=== PATIENT | male | born 1935 ===

== ENCOUNTER 2017-11-21 09:03 | Inpatient (IN) | payer MEDICARE ==
[2017-11-21] MEDS ORDERED: Sodium Chloride 0.9% 1,000 ML IV ONE (09:27)
--- NOTE | 2017-11-21 09:27 | C.PDOC ---
History Of Present Illness 82-year-old male, REFERRED DR LANIER FOR ADMISSION FOR INGUINAL SURGERY REPAIR. PS L SIDED X 1 YR, INCREASING SIZE. OCC NAUSEA. NO OTHER ASSOC SX. NPO SINCE 0700 EXAM NAD ABD SOFT NT ND NO R/G +L INGUINAL HERNIA REMAINDER NEG MDM PER REFERRAL RX BY DR LANIER, ADMIT TO HIS SERVICES CONSULT STEVE LUCIANO AND CHAVEZ, PREOP TESTING. Time Seen by Provider: 11/21/17 09:27 Chief Complaint (Nursing): Medical Clearance History Per: Patient History/Exam Limitations: no limitations Past Medical History Reviewed: Historical Data, Nursing Documentation, Vital Signs Vital Signs: Last Vital Signs Temp 97.9 F 11/21/17 09:07 Pulse 83 11/21/17 10:43 Resp 18 11/21/17 10:43 BP 131/54 L 11/21/17 10:43 Pulse Ox 99 11/21/17 10:43 - Medical History PMH: COPD, HTN, Chronic Kidney Disease Family History: States: No Known Family Hx - Social History Hx Alcohol Use: No Hx Substance Use: No - Immunization History Hx Tetanus Toxoid Vaccination: No Hx Influenza Vaccination: Yes Hx Pneumococcal Vaccination: Yes Review Of Systems Constitutional: Negative for: Fever, Chills, Malaise Cardiovascular: Negative for: Chest Pain Respiratory: Negative for: Shortness of Breath Gastrointestinal: Positive for: Nausea, Other (HERNIA). Negative for: Vomiting Musculoskeletal: Negative for: Back Pain Skin: Negative for: Rash Neurological: Negative for: Weakness Physical Exam - Physical Exam Appears: Non-toxic, No Acute Distress Skin: Normal Color, Warm, Dry, No Rash Nose: Normal Oral Mucosa: Moist Lips: Normal Appearing Neck: Normal ROM Chest: Symmetrical Cardiovascular: Rhythm Regular, No Murmur Respiratory: Normal Breath Sounds, No Accessory Muscle Use Gastrointestinal/Abdominal: Soft, No Tenderness, No Distention, No Guarding, No Rebound, Other (+L INGUINAL HERNIA) Extremity: Normal ROM, No Deformity, No Swelling Neurological/Psych: Oriented x3, Normal Speech ED Course And Treatment - Laboratory Results Result Diagrams: 11/21/17 09:52 11/21/17 10:19 ECG: Interpreted By Wy ECG Rhythm: Sinus Rhythm ECG Interpretation: Normal Rate From EC O2 Sat by Pulse Oximetry: 98 Pulse Ox Interpretation: Normal Medical Decision Making Medical Decision Making: PER REFERRAL RX BY DR LANIER, ADMIT TO HIS SERVICES CONSULT STEVE LUCIANO AND CHAVEZ, PREOP TESTING. Disposition Counseled Patient/Family Regarding: Studies Performed, Diagnosis, Need For Followup - Disposition Disposition: HOSPITALIZED Disposition Time: 09:46 Condition: STABLE - POA Present On Arrival: None - Clinical Impression Clinical Impression: Inguinal hernia Decision To Admit - Pt Status Changed To: Hospital Disposition Of: Inpatient - Admit Certification Admit to Inpatient:: After my assessment, the patient will require hospitalization for at least two midnights. This is because of the severity of symptoms shown, intensity of services needed, and/or the medical risk in this patient being treated as an outpatient. - InPatient: Physician Admission Certification: I certify that this patient requires 2 or more midnights of care for the following reason:: SEE NOTE - . Bed Request Type: Regular Admitting Physician: Long Lanier Patient Diagnosis: Inguinal hernia
[2017-11-21] MEDS ORDERED: Sodium Chloride 0.9% 1,000 ML ONE (09:57)
[2017-11-21 10:03] LABS: BASO % 0.5 % (0.0-2.0); EOS # 0.2 K/uL (0.0-0.7); EOS % 2.4 % (0.0-4.0); HEMOGLOBIN 8.7 g/dL (12.0-18.0); LYMPH # 0.5 K/uL (1.0-4.3); LYMPH % 6.9 % (20.0-40.0); MEAN CELL VOLUME 94.6 fL (80.0-94.0); MEAN CORPUSCULAR HEMOGLOBIN 31.2 pg (27.0-31.0); MEAN PLATELET VOLUME 7.4 fL (7.2-11.7); MONO # 0.5 K/uL (0.0-0.8); MONO % 6.3 % (0.0-10.0); NEUT # 6.2 K/uL (1.8-7.0); NEUT % 83.9 % (50.0-75.0); PLATELET COUNT 287 K/uL (130-400); RBC 2.79 Mil/uL (4.40-5.90); RED CELL DISTRIBUTION WIDTH 17.9 % (11.5-14.5); WHITE BLOOD COUNT 7.4 K/uL (4.8-10.8)
[2017-11-21 10:13] LABS: PROTHROMBIN TIME 11.9 SECONDS (9.7-12.2)
[2017-11-21 10:20] LABS: SQUAMOUS EPITHIAL < 1 /hpf (0-5); URINE BILIRUBIN NEGATIVE (NEGATIVE); URINE BLOOD NEGATIVE (NEGATIVE); URINE CLARITY Clear (Clear); URINE COLOR Straw (YELLOW); URINE GLUCOSE (UA) NORMAL (Normal); URINE LEUKOCYTE ESTERASE NEG Leu/uL (Negative); URINE PROTEIN 2+ mg/dL (NEGATIVE); URINE UROBILINOGEN NORMAL mg/dL (0.2-1.0)
[2017-11-21 10:23] LABS: EOSINOPHIL 2 % (0-4); LYMPHOCYTE 6 % (20-40); MONOCYTE 5 % (0-10); NEUTROPHIL 87 % (50-75); TOTAL CELLS COUNTED 100
[2017-11-21 10:24] LABS: ANISOCYTOSIS SLIGHT; PLATELET ESTIMATE NORMAL (NORMAL)
[2017-11-21 10:26] LABS: HYPOCHROMIC SLIGHT
[2017-11-21 10:36] LABS: ALB/GLOB RATIO 0.8 (1.0-2.1); ALBUMIN 3.2 g/dL (3.5-5.0); CALCIUM 8.2 mg/dl (8.6-10.4)
[2017-11-21] MEDS ORDERED: Albuterol-Ipratrop 3 mg / 0.5 (3 ml) UD IH PRN (13:02)
--- NOTE | 2017-11-21 13:45 | CT ---
CT chest without IV contrast Indication: Rule out ILD Technique: Contiguous axial images were obtained through the chest without intravenous contrast enhancement. Sagittal and coronal reconstructions were generated and reviewed. This CT exam was performed using 1 or more of the following dose reduction techniques: Automated exposure control, adjustment of the MAA and/or kV according to patient size, and/or use of iterative reconstruction technique. Radiation dose (DLP): 219.11 MGy-cm. Comparison: Chest x-ray performed 11/21/17 Findings: The unenhanced mediastinal and hilar vascular structures appear grossly unremarkable. Dense atherosclerotic calcifications of the aorta. Dense coronary artery calcifications. Heart size appears top normal. Trace pericardial effusion. Prominent mediastinal adenopathy. Please note lack of IV contrast limits evaluation for adenopathy, in particular hilar adenopathy. Reticular nodular opacities bilaterally and interstitial prominence. Honeycombing was evident within the lingula and right middle lobe. Patchy bilateral lower lobe infiltrates. No pleural effusion. No pneumothorax. Limited visualization of the noncontrast upper abdomen: Nonobstructing right renal calculus. 6 mm right posterior hepatic lobe calcification, likely granuloma. Osseous demineralization. Degenerative changes of the spine. L1 vertebral body compression fracture deformity, age indeterminate. Impression: Prominent mediastinal adenopathy. Please note lack of IV contrast limits evaluation for adenopathy, in particular hilar adenopathy. Reticular nodular opacities bilaterally and interstitial prominence. Honeycombing was evident within the lingula and right middle lobe. Patchy bilateral lower lobe infiltrates. Superimposed infection on interstitial lung disease is not excluded; correlate clinically. Dense coronary artery calcifications. Atherosclerotic calcifications of the aorta. Trace pericardial effusion. Limited visualization of the noncontrast upper abdomen: Nonobstructing right renal calculus. 6 mm right posterior hepatic lobe calcification, likely granuloma. L1 vertebral body compression fracture deformity, age indeterminate.
--- NOTE | 2017-11-21 14:26 | RAD ---
HISTORY: Pre Op COMPARISON: CT chest without contrast performed 11/21/17 TECHNIQUE: Chest PA and lateral FINDINGS: LUNGS: Interstitial prominence appears chronic. Evidence of honeycombing and bibasilar atelectasis. Mild patchy bibasilar infiltrates/atelectasis. PLEURA: No significant pleural effusion identified. No definite pneumothorax . CARDIOVASCULAR: Heart size appears within normal limits. Ectatic aorta. Dense atherosclerotic calcifications of the aorta. OSSEOUS STRUCTURES: Degenerative changes. VISUALIZED UPPER ABDOMEN: Unremarkable. OTHER FINDINGS: None. IMPRESSION: Interstitial prominence appears chronic. Evidence of honeycombing. Mild patchy bibasilar infiltrates/atelectasis.
[2017-11-21 14:50] LABS: ARTERIAL BLOOD GAS HCO3 19.6 mmol/L (21-28); ARTERIAL BLOOD GAS HEMOGLOBIN 7.6 g/dL (11.7-17.4); ARTERIAL BLOOD GAS O2 SAT 98.4 % (95-98); ARTERIAL BLOOD GAS PCO2 35 mm/Hg (35-45); ARTERIAL BLOOD GAS PH 7.33 (7.35-7.45); ARTERIAL BLOOD GAS PO2 117 mm/Hg (80-100); ARTERIAL BLOOD GAS TCO2 19.6 mmol/L (22-28)
--- NOTE | 2017-11-21 15:47 | CP.PCM.CON ---
History of Present Illness - History of Present Illness History of Present Illness: Reason for consultation: pulmonary clearance/ patient with history of COPD Mr. Moreno is an 82 year old male with medical history of COPD, HTN, CKD who presented to the ED on 11/[address] Ocampo for admission for left inguinal hernia repair. He states the hernia has been present for 1.5 years. He reports mild pain at the site only when he is walking. Denies dyspnea on exertion, history of fibrosis. Reports occasional cough, especially at night. Of note, he states he worked in [employer] for 29 years. He is also a former smoker, started about age 18, quit about age [age]. PMHx: COPD, HTN, CKD, DM PSHx: right inguinal hernia repair NKDA Social Hx: former smoker, worked in [employer] Review of Systems - Review of Systems All systems: reviewed and no additional remarkable complaints except ( complaining of cough) Past Patient History - Past Medical History & Family History Past Medical History?: Yes - Past Social History Smoking Status: Former Smoker - CARDIAC Hx Hypertension: Yes - PULMONARY Hx Chronic Obstructive Pulmonary Disease (COPD): Yes - HEENT Other/Comment: wears glasses - RENAL Hx Chronic Kidney Disease: Yes - ENDOCRINE/METABOLIC Hx Endocrine Disorders: Yes Hx Diabetes Mellitus Type 2: Yes - HEMATOLOGICAL/ONCOLOGICAL Hx Blood Transfusions: Yes - MUSCULOSKELETAL/RHEUMATOLOGICAL Hx Arthritis: Yes Hx Falls: Yes - GASTROINTESTINAL Hx Gastrointestinal Disorders: Yes Other/Comment: HERNIA - PSYCHIATRIC Hx Substance Use: No - SURGICAL HISTORY Hx Surgeries: Yes Hx Herniorrhaphy: Yes (RIGHT INGUINAL) Meds Allergies/Adverse Reactions: Allergies Allergy/AdvReac Type Severity Reaction Status Date / Time No Known Allergies Allergy Verified 11/21/17 09:11 - Medications Medications: Current Medications Albuterol/Ipratropium (Duoneb 3 Mg/0.5 Mg (3 Ml) Ud) 3 ml IH Q4 PRN PRN Reason: Shortness of Breath Amlodipine Besylate (Norvasc) 5 mg PO DAILY [facility] Folic Acid (Folic Acid) 1 mg PO DAILY ZOFIA Sodium Chloride (Sodium Chloride 0.9%) 1,000 mls @ 100 mls/hr IV .Q10H ONE Stop: 11/21/17 19:26 Last Admin: 11/21/17 09:57 Dose: 100 mls/hr Lisinopril (Zestril) 20 mg PO DAILY [facility] Pantoprazole Sodium (Protonix Ec Tab) 40 mg PO DAILY ZOFIA Physical Exam - Head Exam Head Exam: ATRAUMATIC, NORMOCEPHALIC - ENT Exam ENT Exam: Mucous Membranes Moist - Neck Exam Neck exam: Positive for: Normal Inspection - Respiratory Exam Respiratory Exam: Rales - Cardiovascular Exam Cardiovascular Exam: REGULAR RHYTHM - GI/Abdominal Exam GI & Abdominal Exam: Normal Bowel Sounds, Soft - Extremities Exam Extremities exam: Positive for: normal inspection - Neurological Exam Neurological exam: Alert, Oriented x3 Results - Vital Signs Recent Vital Signs: Last Vital Signs Temp 97.9 F 11/21/17 09:07 Pulse 83 11/21/17 10:43 Resp 18 11/21/17 10:43 BP 131/54 L 11/21/17 10:43 Pulse Ox 98 11/21/17 13:29 - Labs Result Diagrams: 11/21/17 09:52 11/21/17 10:19 Labs: Laboratory Results - last 24 hr 11/21/17 11/21/17 11/21/17 09:52 09:52 09:52 WBC 7.4 RBC 2.79 L Hgb 8.7 L Hct 26.4 L MCV 94.6 H MCH 31.2 H MCHC 33.0 RDW 17.9 H Plt Count 287 MPV 7.4 Neut % (Auto) 83.9 H Lymph % (Auto) 6.9 L Prentiss % (Auto) 6.3 Eos % (Auto) 2.4 Baso % (Auto) 0.5 Neut # (Auto) 6.2 Lymph # (Auto) 0.5 L Prentiss # (Auto) 0.5 Eos # (Auto) 0.2 Baso # (Auto) 0.0 Neutrophils % (Manual) 87 H Lymphocytes % (Manual) 6 L Monocytes % (Manual) 5 Eosinophils % (Manual) 2 Platelet Estimate Normal Hypochromasia (manual) Slight Anisocytosis (manual) Slight PT 11.9 INR 1.0 APTT 32 Puncture Site pCO2 pO2 HCO3 ABG pH ABG Total CO2 ABG O2 Saturation ABG Base Excess ABG Hemoglobin ABG Carboxyhemoglobin POC ABG HHb (Measured) ABG Methemoglobin Nuno Test A-a O2 Difference Respiratory Index Hgb O2 Saturation FiO2 Sodium Potassium Chloride Carbon Dioxide Anion Gap BUN Creatinine Est GFR ( Amer) Est GFR (Non-Af Amer) POC Glucose (mg/dL) Random Glucose Calcium Total Bilirubin AST ALT Alkaline Phosphatase Total Protein Albumin Globulin Albumin/Globulin Ratio Urine Color Urine Clarity Urine pH Ur Specific [place] Urine Protein Urine Glucose (UA) Urine Ketones Urine Blood Urine Nitrate Urine Bilirubin Urine Urobilinogen Ur Leukocyte Esterase Urine WBC (Auto) Urine RBC (Auto) Ur Squamous Epith Cells Blood Type O POSITIVE Antibody Screen Negative 11/21/17 11/21/17 11/21/17 10:06 10:19 11:24 WBC RBC Hgb Hct MCV MCH MCHC RDW Plt Count MPV Neut % (Auto) Lymph % (Auto) P[place] % (Auto) Eos % (Auto) Baso % (Auto) Neut # (Auto) Lymph # (Auto) Prentiss # (Auto) Eos # (Auto) Baso # (Auto) Neutrophils % (Manual) Lymphocytes % (Manual) Monocytes % (Manual) Eosinophils % (Manual) Platelet Estimate Hypochromasia (manual) Anisocytosis (manual) PT INR APTT Puncture Site pCO2 pO2 HCO3 ABG pH ABG Total CO2 ABG O2 Saturation ABG Base Excess ABG Hemoglobin ABG Carboxyhemoglobin POC ABG HHb (Measured) ABG Methemoglobin Nuno Test A-a O2 Difference Respiratory Index Hgb O2 Saturation FiO2 Sodium 142 Potassium 4.5 Chloride 112 H Carbon Dioxide 18 L Anion Gap 17 BUN 54 H Creatinine 2.2 H Est GFR ( Amer) 35 Est GFR (Non-Af Amer) 29 POC Glucose (mg/dL) 151 H Random Glucose 131 H Calcium 8.2 L Total Bilirubin 0.3 AST 17 ALT 20 L Alkaline Phosphatase 58 Total Protein 7.1 Albumin 3.2 L Globulin 3.9 Albumin/Globulin Ratio 0.8 L Urine Color Straw Urine Clarity Clear Urine pH 5.0 Ur Specific [place] 1.012 Urine Protein 2+ H Urine Glucose (UA) Normal Urine Ketones Negative Urine Blood Negative Urine Nitrate Negative Urine Bilirubin Negative Urine Urobilinogen Normal Ur Leukocyte Esterase Neg Urine WBC (Auto) 1 Urine RBC (Auto) 1 Ur Squamous Epith Cells < 1 Blood Type Antibody Screen 11/21/17 14:45 WBC RBC Hgb Hct MCV MCH MCHC RDW Plt Count MPV Neut % (Auto) Lymph % (Auto) P[place] % (Auto) Eos % (Auto) Baso % (Auto) Neut # (Auto) Lymph # (Auto) Prentiss # (Auto) Eos # (Auto) Baso # (Auto) Neutrophils % (Manual) Lymphocytes % (Manual) Monocytes % (Manual) Eosinophils % (Manual) Platelet Estimate Hypochromasia (manual) Anisocytosis (manual) PT INR APTT Puncture Site Rb pCO2 35 pO2 117 H HCO3 19.6 L ABG pH 7.33 L ABG Total CO2 19.6 L ABG O2 Saturation 98.4 H ABG Base Excess -6.8 L ABG Hemoglobin 7.6 L ABG Carboxyhemoglobin 0.9 POC ABG HHb (Measured) 1.6 ABG Methemoglobin 1.2 Nuno Test Na A-a O2 Difference -11.0 Respiratory Index -0.1 Hgb O2 Saturation 96.3 FiO2 21.0 Sodium Potassium Chloride Carbon Dioxide Anion Gap BUN Creatinine Est GFR ( Amer) Est GFR (Non-Af Amer) POC Glucose (mg/dL) Random Glucose Calcium Total Bilirubin AST ALT Alkaline Phosphatase Total Protein Albumin Globulin Albumin/Globulin Ratio Urine Color Urine Clarity Urine pH Ur Specific [place] Urine Protein Urine Glucose (UA) Urine Ketones Urine Blood Urine Nitrate Urine Bilirubin Urine Urobilinogen Ur Leukocyte Esterase Urine WBC (Auto) Urine RBC (Auto) Ur Squamous Epith Cells Blood Type Antibody Screen Assessment & Plan (1) ILD (interstitial lung disease) Status: Acute (2) COPD (chronic obstructive pulmonary disease) Status: Acute Comment: CAT scan of the chest consistent with instertitial lung disease with honeycombing. continue nebulizer treatment for now. Rule out sarcoidosis. Inhaled steroid. ABG consistent with metabolic acidosis secondary to renal insufficiency. Consider nephrology evaluation. Stop lisinopril (3) Renal insufficiency Status: Acute (4) Inguinal hernia Status: Acute
--- NOTE | 2017-11-21 18:43 | CP.PCM.CON ---
History of Present Illness - History of Present Illness History of Present Illness: I was asked to see patient by Dr Ocampo. Patient is a 82 year old male with PMH HTN hypercholesterolemia who presents with groin pain. The patient has a hernia and needs surgery. Echocardiogram was performed, which I reviewed. Review of Systems - Constitutional Constitutional: absent: As Per HPI, Anorexia, Chills, Daytime Sleepiness, Excessive Sweating, Fatigue, Fever, Frequent Falls, Headache, Increased Appetite , Lethargy, Malaise, Night Sweats, Snoring, Sleep Apnea, Weight Gain, Weight Loss, Weakness, Other - EENT Eyes: absent: As Per HPI, Blind Spots, Blurred Vision, Change in Vision, Decreased Night Vision, Diplopia, Discharge, Dry Eye, Exophthalmos, Floaters, Irritation, Itchy Eyes, Loss of Peripheral Vision, Pain, Photophobia, Requires Corrective Lenses, Sees Flashes, Spots in Vision, Tunnel Vision, Other Visual Disturbances, Loss of Vision, Other Ears: absent: As Per HPI, Decreased Hearing, Ear Discharge, Ear Pain, Tinnitus, Abnormal Hearing, Disequilibrium, Dizziness, Other Nose/Mouth/Throat: absent: As Per HPI, Epistaxis, Nasal Congestion, Nasal Discharge, Nasal Obstruction, Nasal Trauma, Nose Pain, Post Nasal Drip, Sinus Pain, Sinus Pressure, Bleeding Gums, Change in Voice, Dental Pain, Dry Mouth, Dysphagia, Halitosis, Hoarsness, Lip Swelling, Mouth Lesions, Mouth Pain, Odynophagia, Sore Throat, Throat Swelling, Tongue Swelling, Facial Pain, Neck Pain, Neck Mass, Other - Cardiovascular Cardiovascular: absent: As Per HPI, Acrocyanosis, Chest Pain, Chest Pain at Rest , Chest Pain with Activity, Claudication, Diaphoresis, Dyspnea, Dyspnea on Exertion, Edema, Irregular Heart Rhythm, Pain Radiating to Arm/Neck/Jaw, Leg Edema, Leg Ulcers, Lightheadedness, Orthopnea, Palpitations, Paroxysmal Nocturnal Dyspnea, Pedal Edema, Radiating Pain, Rapid Heart Rate, Slow Heart Rate, Syncope, Other - Respiratory Respiratory: absent: As Per HPI, Cough, Dyspnea, Hemoptysis, Dyspnea on Exertion , Wheezing, Snoring, Stridor, Pain on Inspiration, Chest Congestion, Excessive Mucous Production, Change in Mucous Color, Pain with Coughing, Other - Gastrointestinal Gastrointestinal: absent: As Per HPI, Abdominal Pain, Belching, Bloating, Change in Bowel Habits, Change in Stool Character, Coffee Ground Emesis, Constipation, Cramping, Diarrhea, Dyspepsia, Dysphagia, Early Satiety, Excessive Flatus, Fecal Incontinence, Heartburn, Hematemesis, Hematochezia, Loose Stools, Melena, Nausea, Odynophagia, Temesmus, Vomiting, Other - Genitourinary Genitourinary: absent: As Per HPI, Change in Urinary Stream, Difficulty Urinating, Dysuria, Flank Pain, Hematuria, Pyuria, Nocturia, Urinary Incontinence, Urinary Frequency, Urinary Hesitance, Urinary Urgency, Voiding Freq/Small Amts, Freq UTI, Hx Renal/Bladder Calculi, Hx /Renal Surgery, Bladder Distension, Other - Musculoskeletal Musculoskeletal: absent: As Per HPI, Abnormal Gait, Arthralgias, Atrophy, Back Pain, Deformity, Joint Swelling, Limited Range of Motion, Loss of Height, Muscle Cramps, Muscle Weakness, Myalgias, Neck Pain, Numbness, Radiating Pain into Limb, Stiffness, Tingling, Other - Integumentary Integumentary: absent: As Per HPI, Acne, Alopecia, Bleeding Lesions, Change in Hair, Change in Nails, Change in Pigmentation, Changing Lesions, Dry Skin, Erythema, Furuncle, Hirsutism, Lesions, New Lesions, Non-Healing Lesions, Photosensitivity, Pruritus, Rash, Skin Pain, Skin Ulcer, Sores, Striae, Swelling , Unusual Bruising, Wounds, Jaundice, Other - Neurological Neurological: absent: As Per HPI, Abnormal Gait, Abnormal Hearing, Abnormal Movements, Abnormal Speech, Behavioral Changes, Burning Sensations, Confusion, Convulsions, Disequilibrium, Dizziness, Numbness, Focal Weakness, Frequent Falls , Headaches, Lack of Coordination, Loss of Vision, Memory Loss, Paresthesias, Radicular Pain, Restless Legs, Sensory Deficit, Syncope, Tingling, Tremor, Vertigo, Weakness, Other Visual Disturbances, Other - Psychiatric Psychiatric: absent: As Per HPI, Abnormal Sleep Pattern, Anhedonia, Anxiety, Auditory Hallucinations, Behavioral Changes, Change in Appetite, Change in Libido, Confusion, Depression, Difficulty Concentrating, Hallucinations, Homicidal Ideation, Hopelessness, Irritability, Memory Loss, Mood Swings, Panic Attacks, Paranoia, Suicidal Ideation, Visual Hallucinations, Tactile Hallucinations, Other - Endocrine Endocrine: absent: As Per HPI, Change in Body Appearance, Change in Libido, Cold Intolorance, Deepening of Voice, Excessive Sweating, Fatigue, Flushing, Heat Intolorance, Increase in Ring/Shoe/Hat Size, Palpitations, Polydipsia, Polyphagia, Polyuria, Other - Hematologic/Lymphatic Hematologic: absent: As Per HPI, Easy Bleeding, Easy Bruising, Lymphadenopathy, Other Past Patient History - Past Medical History & Family History Past Medical History?: Yes - Past Social History Smoking Status: Former Smoker - CARDIAC Hx Hypertension: Yes - PULMONARY Hx Chronic Obstructive Pulmonary Disease (COPD): Yes - HEENT Other/Comment: wears glasses - RENAL Hx Chronic Kidney Disease: Yes - ENDOCRINE/METABOLIC Hx Endocrine Disorders: Yes Hx Diabetes Mellitus Type 2: Yes - HEMATOLOGICAL/ONCOLOGICAL Hx Blood Transfusions: Yes - MUSCULOSKELETAL/RHEUMATOLOGICAL Hx Arthritis: Yes Hx Falls: Yes - GASTROINTESTINAL Hx Gastrointestinal Disorders: Yes Other/Comment: HERNIA - PSYCHIATRIC Hx Substance Use: No - SURGICAL HISTORY Hx Surgeries: Yes Hx Herniorrhaphy: Yes (RIGHT INGUINAL) Meds Allergies/Adverse Reactions: Allergies Allergy/AdvReac Type Severity Reaction Status Date / Time No Known Allergies Allergy Verified 11/21/17 09:11 - Medications Medications: Current Medications Albuterol/Ipratropium (Duoneb 3 Mg/0.5 Mg (3 Ml) Ud) 3 ml IH RQ6 ZOFIA Amlodipine Besylate (Norvasc) 5 mg PO DAILY [facility] Folic Acid (Folic Acid) 1 mg PO DAILY [facility] Sodium Chloride (Sodium Chloride 0.9%) 1,000 mls @ 100 mls/hr IV .Q10H ONE Stop: 11/21/17 19:26 Last Admin: 11/21/17 09:57 Dose: 100 mls/hr Pantoprazole Sodium (Protonix Ec Tab) 40 mg PO DAILY [facility] Physical Exam - Constitutional Appears: Non-toxic - Head Exam Head Exam: NORMAL INSPECTION - Eye Exam Eye Exam: Normal appearance - ENT Exam ENT Exam: Mucous Membranes Moist - Neck Exam Neck exam: Positive for: Full Rom - Respiratory Exam Respiratory Exam: NORMAL BREATHING PATTERN - Cardiovascular Exam Cardiovascular Exam: REGULAR RHYTHM - GI/Abdominal Exam GI & Abdominal Exam: Normal Bowel Sounds - Rectal Exam Rectal Exam: Deferred - Extremities Exam Extremities exam: Negative for: pedal edema - Back Exam Back exam: NORMAL INSPECTION - Neurological Exam Neurological exam: Alert, Oriented x3 - Psychiatric Exam Psychiatric exam: Normal Affect - Skin Skin Exam: Normal Color Results - Vital Signs Recent Vital Signs: Last Vital Signs Temp 98 F 11/21/17 16:00 Pulse 84 11/21/17 16:00 Resp 20 11/21/17 16:00 BP 118/54 L 11/21/17 16:00 Pulse Ox 95 11/21/17 16:00 - Labs Result Diagrams: 11/21/17 09:52 11/21/17 10:19 Labs: Laboratory Results - last 24 hr 11/21/17 11/21/17 11/21/17 09:52 09:52 09:52 WBC 7.4 RBC 2.79 L Hgb 8.7 L Hct 26.4 L MCV 94.6 H MCH 31.2 H MCHC 33.0 RDW 17.9 H Plt Count 287 MPV 7.4 Neut % (Auto) 83.9 H Lymph % (Auto) 6.9 L [place] % (Auto) 6.3 Eos % (Auto) 2.4 Baso % (Auto) 0.5 Neut # (Auto) 6.2 Lymph # (Auto) 0.5 L [place] # (Auto) 0.5 Eos # (Auto) 0.2 Baso # (Auto) 0.0 Neutrophils % (Manual) 87 H Lymphocytes % (Manual) 6 L Monocytes % (Manual) 5 Eosinophils % (Manual) 2 Platelet Estimate Normal Hypochromasia (manual) Slight Anisocytosis (manual) Slight ESR PT 11.9 INR 1.0 APTT 32 Puncture Site pCO2 pO2 HCO3 ABG pH ABG Total CO2 ABG O2 Saturation ABG Base Excess ABG Hemoglobin ABG Carboxyhemoglobin POC ABG HHb (Measured) ABG Methemoglobin Nuno Test A-a O2 Difference Respiratory Index Hgb O2 Saturation FiO2 Sodium Potassium Chloride Carbon Dioxide Anion Gap BUN Creatinine Est GFR ( Amer) Est GFR (Non-Af Amer) POC Glucose (mg/dL) Random Glucose Calcium Total Bilirubin AST ALT Alkaline Phosphatase Total Protein Albumin Globulin Albumin/Globulin Ratio Urine Color Urine Clarity Urine pH Ur Specific [place] Urine Protein Urine Glucose (UA) Urine Ketones Urine Blood Urine Nitrate Urine Bilirubin Urine Urobilinogen Ur Leukocyte Esterase Urine WBC (Auto) Urine RBC (Auto) Ur Squamous Epith Cells Blood Type O POSITIVE Antibody Screen Negative 11/21/17 11/21/17 11/21/17 10:06 10:19 11:24 WBC RBC Hgb Hct MCV MCH MCHC RDW Plt Count MPV Neut % (Auto) Lymph % (Auto) [place] % (Auto) Eos % (Auto) Baso % (Auto) Neut # (Auto) Lymph # (Auto) [place] # (Auto) Eos # (Auto) Baso # (Auto) Neutrophils % (Manual) Lymphocytes % (Manual) Monocytes % (Manual) Eosinophils % (Manual) Platelet Estimate Hypochromasia (manual) Anisocytosis (manual) ESR PT INR APTT Puncture Site pCO2 pO2 HCO3 ABG pH ABG Total CO2 ABG O2 Saturation ABG Base Excess ABG Hemoglobin ABG Carboxyhemoglobin POC ABG HHb (Measured) ABG Methemoglobin Nuno Test A-a O2 Difference Respiratory Index Hgb O2 Saturation FiO2 Sodium 142 Potassium 4.5 Chloride 112 H Carbon Dioxide 18 L Anion Gap 17 BUN 54 H Creatinine 2.2 H Est GFR ( Amer) 35 Est GFR (Non-Af Amer) 29 POC Glucose (mg/dL) 151 H Random Glucose 131 H Calcium 8.2 L Total Bilirubin 0.3 AST 17 ALT 20 L Alkaline Phosphatase 58 Total Protein 7.1 Albumin 3.2 L Globulin 3.9 Albumin/Globulin Ratio 0.8 L Urine Color Straw Urine Clarity Clear Urine pH 5.0 Ur Specific [place] 1.012 Urine Protein 2+ H Urine Glucose (UA) Normal Urine Ketones Negative Urine Blood Negative Urine Nitrate Negative Urine Bilirubin Negative Urine Urobilinogen Normal Ur Leukocyte Esterase Neg Urine WBC (Auto) 1 Urine RBC (Auto) 1 Ur Squamous Epith Cells < 1 Blood Type Antibody Screen 11/21/17 11/21/17 11/21/17 14:45 17:08 17:24 WBC RBC Hgb Hct MCV MCH MCHC RDW Plt Count MPV Neut % (Auto) Lymph % (Auto) [place] % (Auto) Eos % (Auto) Baso % (Auto) Neut # (Auto) Lymph # (Auto) [place] # (Auto) Eos # (Auto) Baso # (Auto) Neutrophils % (Manual) Lymphocytes % (Manual) Monocytes % (Manual) Eosinophils % (Manual) Platelet Estimate Hypochromasia (manual) Anisocytosis (manual) ESR 142 H PT INR APTT Puncture Site Rb pCO2 35 pO2 117 H HCO3 19.6 L ABG pH 7.33 L ABG Total CO2 19.6 L ABG O2 Saturation 98.4 H ABG Base Excess -6.8 L ABG Hemoglobin 7.6 L ABG Carboxyhemoglobin 0.9 POC ABG HHb (Measured) 1.6 ABG Methemoglobin 1.2 Nuno Test Na A-a O2 Difference -11.0 Respiratory Index -0.1 Hgb O2 Saturation 96.3 FiO2 21.0 Sodium Potassium Chloride Carbon Dioxide Anion Gap BUN Creatinine Est GFR ( Amer) Est GFR (Non-Af Amer) POC Glucose (mg/dL) 138 H Random Glucose Calcium Total Bilirubin AST ALT Alkaline Phosphatase Total Protein Albumin Globulin Albumin/Globulin Ratio Urine Color Urine Clarity Urine pH Ur Specific [place] Urine Protein Urine Glucose (UA) Urine Ketones Urine Blood Urine Nitrate Urine Bilirubin Urine Urobilinogen Ur Leukocyte Esterase Urine WBC (Auto) Urine RBC (Auto) Ur Squamous Epith Cells Blood Type Antibody Screen - EKG Data EKG Interpreted by: Myself Assessment & Plan (1) Cardiomyopathy Assessment and Plan: patient is euvolemic. He ahs a dilated cardiomyopathy. He has not had a previous history of cardiomyopathy. He is well compensated. I discussed the improtance of medical therapy and blood pressure control. He is at moderate risk for a low risk procedure. There is no cardiovascular contraindication. May need lifevest usp. Status: Acute (2) COPD (chronic obstructive pulmonary disease) Assessment and Plan: Dr Weems Status: Acute (3) Inguinal hernia Assessment and Plan: moderate cardiovascular risk for a low risk procedure. Status: Acute
[2017-11-21] MEDS: Albuterol-Ipratrop 3 mg / 0.5 (3 ml) UD IH SCH (20:29)
[2017-11-21 22:20] LABS: IRON 27 ug/dL (49-181)
[2017-11-21 22:32] LABS: % IRON SATURATION 12 (20-55); TOTAL IRON BINDING CAPACITY 221 ug/dL (250-450)
--- NOTE | 2017-11-21 22:34 | US ---
EXAM: US Retroperitoneal Limited, Renal CLINICAL HISTORY: 82 years old, male; Condition or disease; Other: Ckd; Additional info: Ckd for kidney size TECHNIQUE: Real-time ultrasound of the retroperitoneum (limited) with image documentation. COMPARISON: No relevant prior studies available. FINDINGS: Aorta: Atherosclerosis. No aneurysm. Right kidney: Increased in echogenicity. No mass. 0.6 cm calculus. No hydronephrosis. Left kidney: Increased in echogenicity. No mass. 0.3 cm calculus vs vascular calcification. Mild pelvocaliectasis. Bladder: Minimal distention, limiting evaluation. IMPRESSION: 1. Echogenic kidneys suggesting medical renal disease. 2. Mild pelvocaliectasis of LEFT kidney. 3. Incidental/non-acute findings are described above.
--- NOTE | 2017-11-21 22:44 | CP.PCM.HP ---
History of Present Illness - History of Present Illness History of Present Illness: CC: groin pain HPI: Mr. Moreno is an 82 year old male with medical history of COPD, HTN, CKD who presented to the ED on 11/[address] Ocampo for admission for left inguinal hernia repair. He states the hernia has been present for 1.5 years. He reports mild pain at the site only when he is walking. Denies dyspnea on exertion, history of fibrosis. Reports occasional cough, especially at night. Of note, he states he worked in [employer] for 29 years. He is also a former smoker, started about age 18, quit about age 40- 42. PMHx: COPD, HTN, CKD, DM PSHx: right inguinal hernia repair NKDA Social Hx: former smoker, worked in [employer] Past Patient History - Past Medical History & Family History Past Medical History?: Yes - Past Social History Smoking Status: Former Smoker - CARDIAC Hx Hypertension: Yes - PULMONARY Hx Chronic Obstructive Pulmonary Disease (COPD): Yes - HEENT Other/Comment: wears glasses - RENAL Hx Chronic Kidney Disease: Yes - ENDOCRINE/METABOLIC Hx Endocrine Disorders: Yes Hx Diabetes Mellitus Type 2: Yes - HEMATOLOGICAL/ONCOLOGICAL Hx Blood Transfusions: Yes - MUSCULOSKELETAL/RHEUMATOLOGICAL Hx Arthritis: Yes Hx Falls: Yes - GASTROINTESTINAL Hx Gastrointestinal Disorders: Yes Other/Comment: HERNIA - PSYCHIATRIC Hx Substance Use: No - SURGICAL HISTORY Hx Surgeries: Yes Hx Herniorrhaphy: Yes (RIGHT INGUINAL) Meds Allergies/Adverse Reactions: Allergies Allergy/AdvReac Type Severity Reaction Status Date / Time No Known Allergies Allergy Verified 11/21/17 09:11 Results - Vital Signs Recent Vital Signs: Last Vital Signs Temp 98 F 11/21/17 16:00 Pulse 84 11/21/17 16:00 Resp 20 11/21/17 16:00 BP 118/54 L 11/21/17 16:00 Pulse Ox 95 11/21/17 16:00 - Labs Result Diagrams: 11/21/17 09:52 11/21/17 10:19 Labs: Laboratory Results - last 24 hr 11/21/17 11/21/17 11/21/17 09:52 09:52 09:52 WBC 7.4 RBC 2.79 L Hgb 8.7 L Hct 26.4 L MCV 94.6 H MCH 31.2 H MCHC 33.0 RDW 17.9 H Plt Count 287 MPV 7.4 Neut % (Auto) 83.9 H Lymph % (Auto) 6.9 L [place] % (Auto) 6.3 Eos % (Auto) 2.4 Baso % (Auto) 0.5 Neut # (Auto) 6.2 Lymph # (Auto) 0.5 L [place] # (Auto) 0.5 Eos # (Auto) 0.2 Baso # (Auto) 0.0 Neutrophils % (Manual) 87 H Lymphocytes % (Manual) 6 L Monocytes % (Manual) 5 Eosinophils % (Manual) 2 Platelet Estimate Normal Hypochromasia (manual) Slight Anisocytosis (manual) Slight ESR PT 11.9 INR 1.0 APTT 32 Puncture Site pCO2 pO2 HCO3 ABG pH ABG Total CO2 ABG O2 Saturation ABG Base Excess ABG Hemoglobin ABG Carboxyhemoglobin POC ABG HHb (Measured) ABG Methemoglobin Nuno Test A-a O2 Difference Respiratory Index Hgb O2 Saturation FiO2 Sodium Potassium Chloride Carbon Dioxide Anion Gap BUN Creatinine Est GFR ( Amer) Est GFR (Non-Af Amer) POC Glucose (mg/dL) Random Glucose Calcium Phosphorus Iron TIBC % Saturation Total Bilirubin AST ALT Alkaline Phosphatase Total Protein Albumin Globulin Albumin/Globulin Ratio Urine Color Urine Clarity Urine pH Ur Specific [place] Urine Protein Urine Glucose (UA) Urine Ketones Urine Blood Urine Nitrate Urine Bilirubin Urine Urobilinogen Ur Leukocyte Esterase Urine WBC (Auto) Urine RBC (Auto) Ur Squamous Epith Cells Blood Type O POSITIVE Antibody Screen Negative 11/21/17 11/21/17 11/21/17 10:06 10:19 11:24 WBC RBC Hgb Hct MCV MCH MCHC RDW Plt Count MPV Neut % (Auto) Lymph % (Auto) [place] % (Auto) Eos % (Auto) Baso % (Auto) Neut # (Auto) Lymph # (Auto) [place] # (Auto) Eos # (Auto) Baso # (Auto) Neutrophils % (Manual) Lymphocytes % (Manual) Monocytes % (Manual) Eosinophils % (Manual) Platelet Estimate Hypochromasia (manual) Anisocytosis (manual) ESR PT INR APTT Puncture Site pCO2 pO2 HCO3 ABG pH ABG Total CO2 ABG O2 Saturation ABG Base Excess ABG Hemoglobin ABG Carboxyhemoglobin POC ABG HHb (Measured) ABG Methemoglobin Nuno Test A-a O2 Difference Respiratory Index Hgb O2 Saturation FiO2 Sodium 142 Potassium 4.5 Chloride 112 H Carbon Dioxide 18 L Anion Gap 17 BUN 54 H Creatinine 2.2 H Est GFR ( Amer) 35 Est GFR (Non-Af Amer) 29 POC Glucose (mg/dL) 151 H Random Glucose 131 H Calcium 8.2 L Phosphorus Iron TIBC % Saturation Total Bilirubin 0.3 AST 17 ALT 20 L Alkaline Phosphatase 58 Total Protein 7.1 Albumin 3.2 L Globulin 3.9 Albumin/Globulin Ratio 0.8 L Urine Color Straw Urine Clarity Clear Urine pH 5.0 Ur Specific [place] 1.012 Urine Protein 2+ H Urine Glucose (UA) Normal Urine Ketones Negative Urine Blood Negative Urine Nitrate Negative Urine Bilirubin Negative Urine Urobilinogen Normal Ur Leukocyte Esterase Neg Urine WBC (Auto) 1 Urine RBC (Auto) 1 Ur Squamous Epith Cells < 1 Blood Type Antibody Screen 11/21/17 11/21/17 11/21/17 14:45 17:08 17:24 WBC RBC Hgb Hct MCV MCH MCHC RDW Plt Count MPV Neut % (Auto) Lymph % (Auto) [place] % (Auto) Eos % (Auto) Baso % (Auto) Neut # (Auto) Lymph # (Auto) [place] # (Auto) Eos # (Auto) Baso # (Auto) Neutrophils % (Manual) Lymphocytes % (Manual) Monocytes % (Manual) Eosinophils % (Manual) Platelet Estimate Hypochromasia (manual) Anisocytosis (manual) ESR 142 H PT INR APTT Puncture Site Rb pCO2 35 pO2 117 H HCO3 19.6 L ABG pH 7.33 L ABG Total CO2 19.6 L ABG O2 Saturation 98.4 H ABG Base Excess -6.8 L ABG Hemoglobin 7.6 L ABG Carboxyhemoglobin 0.9 POC ABG HHb (Measured) 1.6 ABG Methemoglobin 1.2 Nuno Test Na A-a O2 Difference -11.0 Respiratory Index -0.1 Hgb O2 Saturation 96.3 FiO2 21.0 Sodium Potassium Chloride Carbon Dioxide Anion Gap BUN Creatinine Est GFR ( Amer) Est GFR (Non-Af Amer) POC Glucose (mg/dL) 138 H Random Glucose Calcium Phosphorus Iron TIBC % Saturation Total Bilirubin AST ALT Alkaline Phosphatase Total Protein Albumin Globulin Albumin/Globulin Ratio Urine Color Urine Clarity Urine pH Ur Specific [place] Urine Protein Urine Glucose (UA) Urine Ketones Urine Blood Urine Nitrate Urine Bilirubin Urine Urobilinogen Ur Leukocyte Esterase Urine WBC (Auto) Urine RBC (Auto) Ur Squamous Epith Cells Blood Type Antibody Screen 11/21/17 11/21/17 11/21/17 21:01 22:02 22:02 WBC RBC Hgb Hct MCV MCH MCHC RDW Plt Count MPV Neut % (Auto) Lymph % (Auto) [place] % (Auto) Eos % (Auto) Baso % (Auto) Neut # (Auto) Lymph # (Auto) [place] # (Auto) Eos # (Auto) Baso # (Auto) Neutrophils % (Manual) Lymphocytes % (Manual) Monocytes % (Manual) Eosinophils % (Manual) Platelet Estimate Hypochromasia (manual) Anisocytosis (manual) ESR PT INR APTT Puncture Site pCO2 pO2 HCO3 ABG pH ABG Total CO2 ABG O2 Saturation ABG Base Excess ABG Hemoglobin ABG Carboxyhemoglobin POC ABG HHb (Measured) ABG Methemoglobin Nuno Test A-a O2 Difference Respiratory Index Hgb O2 Saturation FiO2 Sodium Potassium Chloride Carbon Dioxide Anion Gap BUN Creatinine Est GFR ( Amer) Est GFR (Non-Af Amer) POC Glucose (mg/dL) 111 H Random Glucose Calcium Phosphorus 3.8 Iron 27 L TIBC 221 L % Saturation 12 L Total Bilirubin AST ALT Alkaline Phosphatase Total Protein Albumin Globulin Albumin/Globulin Ratio Urine Color Urine Clarity Urine pH Ur Specific [place] Urine Protein Urine Glucose (UA) Urine Ketones Urine Blood Urine Nitrate Urine Bilirubin Urine Urobilinogen Ur Leukocyte Esterase Urine WBC (Auto) Urine RBC (Auto) Ur Squamous Epith Cells Blood Type Antibody Screen
--- NOTE | 2017-11-21 23:04 | CP.PCM.CON ---
History of Present Illness - History of Present Illness History of Present Illness: pt is seen and examined, full consult is dictated #[id number] 1. htn 2.dm 3. ckd-3b-4 4. anemia 5. proteinuria , most likley sec to CKD sec to htn nephrosclerosis 6. met. acidosis sec to ckd check upep, spep, add nahco3 ivf 1/2 ns with 75 meq in each claus t 70 ml/hr fe,tibc, ferritin, u/s kidneys are done pt is stable from renal stand point for cristin ia repair add epogen and iv fe Past Patient History - Past Medical History & Family History Past Medical History?: Yes - Past Social History Smoking Status: Former Smoker - CARDIAC Hx Hypertension: Yes - PULMONARY Hx Chronic Obstructive Pulmonary Disease (COPD): Yes - HEENT Other/Comment: wears glasses - RENAL Hx Chronic Kidney Disease: Yes - ENDOCRINE/METABOLIC Hx Endocrine Disorders: Yes Hx Diabetes Mellitus Type 2: Yes - HEMATOLOGICAL/ONCOLOGICAL Hx Blood Transfusions: Yes - MUSCULOSKELETAL/RHEUMATOLOGICAL Hx Arthritis: Yes Hx Falls: Yes - GASTROINTESTINAL Hx Gastrointestinal Disorders: Yes Other/Comment: HERNIA - PSYCHIATRIC Hx Substance Use: No - SURGICAL HISTORY Hx Surgeries: Yes Hx Herniorrhaphy: Yes (RIGHT INGUINAL) Meds Allergies/Adverse Reactions: Allergies Allergy/AdvReac Type Severity Reaction Status Date / Time No Known Allergies Allergy Verified 11/21/17 09:11 - Medications Medications: Current Medications Albuterol/Ipratropium (Duoneb 3 Mg/0.5 Mg (3 Ml) Ud) 3 ml IH RQ6 [facility] Last Admin: 11/21/17 20:29 Dose: 3 ml Amlodipine Besylate (Norvasc) 5 mg PO DAILY [facility] Folic Acid (Folic Acid) 1 mg PO DAILY [facility] Pantoprazole Sodium (Protonix Ec Tab) 40 mg PO DAILY [facility] Results - Vital Signs Recent Vital Signs: Last Vital Signs Temp 98 F 11/21/17 16:00 Pulse 84 11/21/17 16:00 Resp 20 11/21/17 16:00 BP 118/54 L 11/21/17 16:00 Pulse Ox 95 11/21/17 16:00 - Labs Result Diagrams: 11/21/17 09:52 11/21/17 10:19 Labs: Laboratory Results - last 24 hr 11/21/17 11/21/17 11/21/17 09:52 09:52 09:52 WBC 7.4 RBC 2.79 L Hgb 8.7 L Hct 26.4 L MCV 94.6 H MCH 31.2 H MCHC 33.0 RDW 17.9 H Plt Count 287 MPV 7.4 Neut % (Auto) 83.9 H Lymph % (Auto) 6.9 L [place] % (Auto) 6.3 Eos % (Auto) 2.4 Baso % (Auto) 0.5 Neut # (Auto) 6.2 Lymph # (Auto) 0.5 L [place] # (Auto) 0.5 Eos # (Auto) 0.2 Baso # (Auto) 0.0 Neutrophils % (Manual) 87 H Lymphocytes % (Manual) 6 L Monocytes % (Manual) 5 Eosinophils % (Manual) 2 Platelet Estimate Normal Hypochromasia (manual) Slight Anisocytosis (manual) Slight ESR PT 11.9 INR 1.0 APTT 32 Puncture Site pCO2 pO2 HCO3 ABG pH ABG Total CO2 ABG O2 Saturation ABG Base Excess ABG Hemoglobin ABG Carboxyhemoglobin POC ABG HHb (Measured) ABG Methemoglobin Nuno Test A-a O2 Difference Respiratory Index Hgb O2 Saturation FiO2 Sodium Potassium Chloride Carbon Dioxide Anion Gap BUN Creatinine Est GFR ( Amer) Est GFR (Non-Af Amer) POC Glucose (mg/dL) Random Glucose Calcium Phosphorus Iron TIBC % Saturation Ferritin Total Bilirubin AST ALT Alkaline Phosphatase Total Protein Albumin Globulin Albumin/Globulin Ratio Urine Color Urine Clarity Urine pH Ur Specific [place] Urine Protein Urine Glucose (UA) Urine Ketones Urine Blood Urine Nitrate Urine Bilirubin Urine Urobilinogen Ur Leukocyte Esterase Urine WBC (Auto) Urine RBC (Auto) Ur Squamous Epith Cells Blood Type O POSITIVE Antibody Screen Negative 11/21/17 11/21/17 11/21/17 10:06 10:19 11:24 WBC RBC Hgb Hct MCV MCH MCHC RDW Plt Count MPV Neut % (Auto) Lymph % (Auto) [place] % (Auto) Eos % (Auto) Baso % (Auto) Neut # (Auto) Lymph # (Auto) [place] # (Auto) Eos # (Auto) Baso # (Auto) Neutrophils % (Manual) Lymphocytes % (Manual) Monocytes % (Manual) Eosinophils % (Manual) Platelet Estimate Hypochromasia (manual) Anisocytosis (manual) ESR PT INR APTT Puncture Site pCO2 pO2 HCO3 ABG pH ABG Total CO2 ABG O2 Saturation ABG Base Excess ABG Hemoglobin ABG Carboxyhemoglobin POC ABG HHb (Measured) ABG Methemoglobin Nuno Test A-a O2 Difference Respiratory Index Hgb O2 Saturation FiO2 Sodium 142 Potassium 4.5 Chloride 112 H Carbon Dioxide 18 L Anion Gap 17 BUN 54 H Creatinine 2.2 H Est GFR ( Amer) 35 Est GFR (Non-Af Amer) 29 POC Glucose (mg/dL) 151 H Random Glucose 131 H Calcium 8.2 L Phosphorus Iron TIBC % Saturation Ferritin Total Bilirubin 0.3 AST 17 ALT 20 L Alkaline Phosphatase 58 Total Protein 7.1 Albumin 3.2 L Globulin 3.9 Albumin/Globulin Ratio 0.8 L Urine Color Straw Urine Clarity Clear Urine pH 5.0 Ur Specific [place] 1.012 Urine Protein 2+ H Urine Glucose (UA) Normal Urine Ketones Negative Urine Blood Negative Urine Nitrate Negative Urine Bilirubin Negative Urine Urobilinogen Normal Ur Leukocyte Esterase Neg Urine WBC (Auto) 1 Urine RBC (Auto) 1 Ur Squamous Epith Cells < 1 Blood Type Antibody Screen 11/21/17 11/21/17 11/21/17 14:45 17:08 17:24 WBC RBC Hgb Hct MCV MCH MCHC RDW Plt Count MPV Neut % (Auto) Lymph % (Auto) [place] % (Auto) Eos % (Auto) Baso % (Auto) Neut # (Auto) Lymph # (Auto) [place] # (Auto) Eos # (Auto) Baso # (Auto) Neutrophils % (Manual) Lymphocytes % (Manual) Monocytes % (Manual) Eosinophils % (Manual) Platelet Estimate Hypochromasia (manual) Anisocytosis (manual) ESR 142 H PT INR APTT Puncture Site Rb pCO2 35 pO2 117 H HCO3 19.6 L ABG pH 7.33 L ABG Total CO2 19.6 L ABG O2 Saturation 98.4 H ABG Base Excess -6.8 L ABG Hemoglobin 7.6 L ABG Carboxyhemoglobin 0.9 POC ABG HHb (Measured) 1.6 ABG Methemoglobin 1.2 Nuno Test Na A-a O2 Difference -11.0 Respiratory Index -0.1 Hgb O2 Saturation 96.3 FiO2 21.0 Sodium Potassium Chloride Carbon Dioxide Anion Gap BUN Creatinine Est GFR ( Amer) Est GFR (Non-Af Amer) POC Glucose (mg/dL) 138 H Random Glucose Calcium Phosphorus Iron TIBC % Saturation Ferritin Total Bilirubin AST ALT Alkaline Phosphatase Total Protein Albumin Globulin Albumin/Globulin Ratio Urine Color Urine Clarity Urine pH Ur Specific [place] Urine Protein Urine Glucose (UA) Urine Ketones Urine Blood Urine Nitrate Urine Bilirubin Urine Urobilinogen Ur Leukocyte Esterase Urine WBC (Auto) Urine RBC (Auto) Ur Squamous Epith Cells Blood Type Antibody Screen 11/21/17 11/21/17 11/21/17 21:01 22:02 22:02 WBC RBC Hgb Hct MCV MCH MCHC RDW Plt Count MPV Neut % (Auto) Lymph % (Auto) [place] % (Auto) Eos % (Auto) Baso % (Auto) Neut # (Auto) Lymph # (Auto) [place] # (Auto) Eos # (Auto) Baso # (Auto) Neutrophils % (Manual) Lymphocytes % (Manual) Monocytes % (Manual) Eosinophils % (Manual) Platelet Estimate Hypochromasia (manual) Anisocytosis (manual) ESR PT INR APTT Puncture Site pCO2 pO2 HCO3 ABG pH ABG Total CO2 ABG O2 Saturation ABG Base Excess ABG Hemoglobin ABG Carboxyhemoglobin POC ABG HHb (Measured) ABG Methemoglobin Nuno Test A-a O2 Difference Respiratory Index Hgb O2 Saturation FiO2 Sodium Potassium Chloride Carbon Dioxide Anion Gap BUN Creatinine Est GFR ( Amer) Est GFR (Non-Af Amer) POC Glucose (mg/dL) 111 H Random Glucose Calcium Phosphorus 3.8 Iron 27 L TIBC 221 L % Saturation 12 L Ferritin 253.0 Total Bilirubin AST ALT Alkaline Phosphatase Total Protein Albumin Globulin Albumin/Globulin Ratio Urine Color Urine Clarity Urine pH Ur Specific [place] Urine Protein Urine Glucose (UA) Urine Ketones Urine Blood Urine Nitrate Urine Bilirubin Urine Urobilinogen Ur Leukocyte Esterase Urine WBC (Auto) Urine RBC (Auto) Ur Squamous Epith Cells Blood Type Antibody Screen
--- NOTE | 2017-11-22 00:17 | CARD ---
APPROVED REPORT EXAM: Two-dimensional and M-mode echocardiogram with Doppler and color Doppler. Other Information Quality : GoodRhythm : INDICATION Pre-Op Iguinal Hernia 2D DIMENSIONS IVSd1.0 (0.7-1.1cm)LVDd4.2 (3.9-5.9cm) PWd1.1 (0.7-1.1cm)LVDs3.6 (2.5-4.0cm) FS (%) 15.5 %LVEF (%)33.0 (>50%) M-Mode DIMENSIONS Left Atrium (MM)3.17 (2.5-4.0cm)Aortic Root3.80 (2.2-3.7cm) Aortic Cusp Exc.2.78 (1.5-2.0cm) Mitral Valve MV E Rgwrghyo38.7cm/sMV A Gjbazuci140.7cm/sE/A ratio0.7 TDI E/Lateral E'0.0E/Medial E'0.0 LEFT VENTRICLE The left ventricle is normal size. There is normal left ventricular wall thickness. Left ventricle systolic function is borderline. The Ejection Fraction is 50-55%. There is normal LV segmental wall motion. Transmitral Doppler flow pattern is Grade I-abnormal relaxation pattern. There is no ventricular septal defect visualized. RIGHT VENTRICLE The right ventricle is normal size. The right ventricular systolic function is normal. ATRIA The left atrium is mildly dilated. The right atrium size is normal. AORTIC VALVE The aortic valve is mildly sclerotic. The aortic valve is tri-cuspid. No aortic regurgitation is present. There is no aortic valvular stenosis. MITRAL VALVE The mitral valve is normal in structure. There is no evidence of mitral valve prolapse. There is no mitral valve regurgitation noted. TRICUSPID VALVE The tricuspid valve is normal in structure. There is no tricuspid valve regurgitation noted. PULMONIC VALVE The pulmonic valve is not well visualized. There is no pulmonic valvular regurgitation. GREAT VESSELS The aortic root is mildly enlarged. 3.8 cm The ascending aorta is normal in size. The IVC is normal in size and collapses >50% with inspiration. PERICARDIAL EFFUSION There is no pericardial effusion. <Conclusion> Left ventricle systolic function is borderline. The Ejection Fraction is 50-55%. Transmitral Doppler flow pattern is Grade I-abnormal relaxation pattern. The aortic root is mildly enlarged. 3.8 cm
[2017-11-22] MEDS: Albuterol-Ipratrop 3 mg / 0.5 (3 ml) UD IH SCH ×3 (01:18→14:16)
[2017-11-22 08:12] LABS: BASO % 0.4 % (0.0-2.0); EOS # 0.2 K/uL (0.0-0.7); EOS % 4.1 % (0.0-4.0); HEMOGLOBIN 8.3 g/dL (12.0-18.0); LYMPH # 0.8 K/uL (1.0-4.3); MEAN CELL VOLUME 94.1 fL (80.0-94.0); MEAN CORPUSCULAR HEMOGLOBIN 31.8 pg (27.0-31.0); MEAN CORPUSCULAR HGB CONC 33.8 g/dL (33.0-37.0); MEAN PLATELET VOLUME 7.4 fL (7.2-11.7); MONO # 0.5 K/uL (0.0-0.8); MONO % 8.5 % (0.0-10.0); NEUT # 4.4 K/uL (1.8-7.0); RBC 2.62 Mil/uL (4.40-5.90); RED CELL DISTRIBUTION WIDTH 17.6 % (11.5-14.5); WHITE BLOOD COUNT 5.9 K/uL (4.8-10.8)
[2017-11-22 08:17] LABS: CALCIUM 8.8 mg/dl (8.6-10.4)
[2017-11-22] MEDS ORDERED: Epoetin Alfa 10,000 unit/ml Dialysis SC SCH (10:00)
--- NOTE | 2017-11-22 10:14 | CON ---
DATE: 11/21/2017 The patient is located in room 365, bed B. REQUESTED BY: Long Ocampo MD REASON FOR RENAL CONSULTATION: Increased BUN and creatinine, and for further evaluation. HISTORY OF PRESENT ILLNESS: Mr. Moreno is an 82-year-old elderly male with a past medical history significant for hypertension for about 17 years, diabetes for 17 years, hyperlipidemia, questionable coronary artery disease with a poor LV function, status post right inguinal hernia surgery who was admitted for possible left inguinal hernia surgery tomorrow and found to have a low H and H and increased BUN and creatinine, requesting for further evaluation. The patient did complain he had previous kidney disease, diagnosed in [place] long time ago when he was admitted to the hospital in the past. The patient denies any chest pain or palpitation. Denies any fever or cough. Denies any abdominal pain. Denies any nausea, vomiting, or diarrhea. Denies any dysuria or frequency. Denies any edema of the legs. Denies any bleeding per rectum. PAST MEDICAL HISTORY: Significant for hypertension for 17 years, diabetes for 17 years, hyperlipidemia, questionable coronary artery disease, questionable poor LV function. PAST SURGICAL HISTORY: Status post right inguinal surgery, inguinal hernia surgery long time ago. ALLERGIES: NO KNOWN DRUG ALLERGIES. SOCIAL HISTORY: The patient was an ex-smoker, smoked from the age 18 to 42, and he used to smoke 1 to 2 packets of cigarettes per day; and occasional alcohol use, social in the past. No drug abuse. PERSONAL HISTORY: He is and he has five children. His both parents , and he has one sister living in [place] and one living in [place]. MEDICATIONS: His current medications include as follows: Glimepiride 1 mg p.o. a.c.b., folic acid 1 mg daily, Cardura 4 mg p.o. at bedtime, DuoNeb inhaler 3 mL q.4 hours, hydrochlorothiazide 25 mg p.o. daily, amlodipine 2.5 mg p.o. daily, simvastatin 40 mg p.o. daily, Protonix 40 mg p.o. daily, and lisinopril with hydrochlorothiazide 20/12.5 mg 1 tablet p.o. daily. REVIEW OF SYSTEMS: Significant for swelling in left inguinal region with cough. All other review of systems are reviewed and are negative. PHYSICAL EXAMINATION: VITAL SIGNS: As follows, blood pressure 118/54, pulse 84, respirations 20, temperature 98, saturation 95%. Height 5 feet, weight is 100 pounds. GENERAL: On physical exam, Mr. Moreno is 82 years old elderly male, moderately built, moderate nourished, not in distress. HEENT: Pupils normal and reactive to light and accommodation. Conjunctivae pink. Sclerae anicteric. Tongue is moist. Trachea is midline. LUNGS: Symmetric on both sides. Bilateral breath sounds present. Clear on auscultation. CVS: [place] at the fifth intercostal space of intermediate midclavicular line. S1, S2 audible. No murmur or gallop. ABDOMEN: Normal in appearance. Soft, tympanic. No guarding. No rigidity. No hepatosplenomegaly. No abdominal bleeding. The patient has left inguinal hernia which protrudes with cough. DAMAGE ASSESSOR: The patient is alert, awake and oriented x3. Nonfocal neuro examination. Cranial nerves II through XII grossly intact. Sensory and motor system is within normal limits. EXTREMITIES: No cyanosis, no clubbing, no edema. LABORATORY DATA: His laboratory data include as follows. As of 11/21/2017, WBC 7.4, hemoglobin 8.7, hematocrit is 26.4, platelets 287, PT 11.9, PTT 32. Sodium 142, potassium 4.5, chloride 112, CO2 of 18, BUN 54, creatinine 2.2, glucose is 151, GFR is 29, glucose is 131, calcium 8.2. Total bili 0.3, AST 17, ALT 20, alkaline phosphatase 58, total protein 7.1, albumin is 3.2. Urinalysis straw color, clear, pH 5, specific 1.012, protein 2+, glucose normal, ketones negative, blood negative, nitrites negative, bilirubin negative, urobilinogen normal, leukocyte esterase negative, wbc 1, rbc 1, squamous epithelial less than 1. ABG, pH 7.33, pCO2 of 35, pO2 117, bicarb is 19.6, saturation is 98.4. Other laboratory data, phosphorus is 3.8, iron is 27, TIBC 221, and saturation is 12, and ferritin level is pending this evening. Ultrasound of the kidneys as of 11/21/2017, impression, echogenic kidneys suggestive of medical renal disease, mild pelvicaliectasis of the left kidney, and the right kidney size is 8.29 cm x 3.7 cm increased echogenicity, and the left kidney size is 8.4 x 4.0 cm. IMPRESSION: In summary, Mr. Moreno is 82 years old elderly male with history of hypertension, diabetes, hyperlipidemia, questionable decreased left ventricular function, status post right inguinal surgery in the past, was admitted with left inguinal hernia repair and swelling in the left groin with cough. 1. Chronic kidney disease stage IV, most likely secondary to hypertensive nephrosclerosis, cannot rule out underlying diabetic nephropathy also. 2. Proteinuria, most likely secondary to hypertensive nephrosclerosis. 3. Anemia secondary to renal failure and iron deficiency anemia. 4. Metabolic acidosis secondary to chronic kidney disease. PLAN: We will start IV fluids, D with half-normal saline with 75 mEq of sodium bicarb at 70 mL/hour, and we will also start Venofer or Ferrlecit daily starting from the morning, and also we will add Procrit 10,000 units subcu three times a week. Check UPEP, SPEP and also PTH intact level also. We will follow with you. Thank you for allowing me to participate in your patient's care. Caro Johnson MD
[2017-11-22] MEDS: Pantoprazole 40 mg EC Tab PO SCH (12:36)
--- NOTE | 2017-11-22 12:48 | CP.PCM.PN ---
Subjective - Date & Time of Evaluation Date of Evaluation: 11/22/17 Time of Evaluation: 12:48 - Subjective Subjective: pt is seen and examined, follow up consult is dictated #[id number] [facility] k pth, upep, spep, hept.b,c serology Objective - Vital Signs/Intake and Output Vital Signs (last 24 hours): Temp Pulse Resp BP Pulse Ox 97.7 F 83 20 126/62 96 11/22/17 08:08 11/22/17 08:08 11/22/17 08:08 11/22/17 08:08 11/22/17 08:08 Intake and Output: 11/22/17 11/22/17 06:59 18:59 Intake Total 400 570 Output Total 250 Balance 150 570 - Medications Medications: Current Medications Albuterol/Ipratropium (Duoneb 3 Mg/0.5 Mg (3 Ml) Ud) 3 ml IH RQ6 [facility] Last Admin: 11/22/17 08:24 Dose: 3 ml Amlodipine Besylate (Norvasc) 5 mg PO DAILY [facility] Last Admin: 11/22/17 10:00 Dose: 5 mg Epoetin Mathieu (Procrit) 10,000 unit SC TTS [facility] Ferric Sodium Gluconate Complex (Ferrlecit) 125 mg IVPB DAILY [facility] Stop: 11/30/17 10:01 Folic Acid (Folic Acid) 1 mg PO DAILY [facility] Last Admin: 11/22/17 10:00 Dose: 1 mg Sodium Bicarbonate 75 meq/ (Sodium Chloride) 1,075 mls @ 70 mls/hr IV .[id number] [facility] Stop: 11/23/17 00:31 Last Admin: 11/22/17 01:00 Dose: 70 mls/hr Pantoprazole Sodium (Protonix Ec Tab) 40 mg PO DAILY [facility] Last Admin: 11/22/17 12:36 Dose: 40 mg - Labs Labs: 11/22/17 07:46 11/22/17 07:46 PT 11.9 SECONDS (9.7-12.2) 11/21/17 09:52 INR 1.0 11/21/17 09:52 APTT 32 SECONDS (21-34) 11/21/17 09:52
[2017-11-22] MEDS: Ferric Sodium Gluconat Complex 62.5 mg/5 ml Vial IVPB SCH (12:50)
[2017-11-22] MEDS ORDERED: Bupivacaine HCl 0.25% PF (10 ml) Inj ONE (13:47)
[2017-11-22] MEDS ORDERED: ceFAZolin IV 1 gm in Dextrose 1 GM/50 ML BAG IVPB ONE (13:47)
[2017-11-22] MEDS: Dextrose 5%/0.45% NS 1,000 ML IV SCH ×2 (14:23→20:32)
[2017-11-22] MEDS ORDERED: Propofol 10 mg/ml Inj (20 ML) ONE (14:28)
[2017-11-22] MEDS ORDERED: Midazolam 2 MG/2 ML VIAL ONE (14:28)
[2017-11-22] MEDS ORDERED: Succinylcholine Chloride 20 mg/ml Syr (5 ml) IV ONE ×2 (14:30)
[2017-11-22] MEDS ORDERED: Lidocaine 2% Inj (20ml) ONE (14:37)
[2017-11-22] MEDS: HYDROmorphone 0.5 mg/0.5 ml ISec IVP PRN ×3 (16:00→16:36)
--- NOTE | 2017-11-22 17:06 | CP.PCM.PN ---
Subjective - Date & Time of Evaluation Date of Evaluation: 11/22/17 Time of Evaluation: 11:00 - Subjective Subjective: Patient is seen and examined at bedside today Resting comfortably, unlabored breathing Reports occasional cough with less intensity Denies fever/chills, chest pain, shortness of breath, wheezing Afebrile Assessment/Plan: 1. Left inguinal hernia -Management as per surgery -Repair is pending medical optimization 2. Interstitial lung disease -Most recent chest XR on 11/21: Interstitial prominence appears chronic. Evidence of honeycombing. Mild patchy bibasilar infiltrates/atelectasis. -Most recent chest CT without contrast on 11/21: Prominent mediastinal adenopathy. Reticular opacities bilaterally and interstitial prominence. Honeycombing was evident within the lingula and right middle lobe. Patchy bilateral lower lobe infiltrates. Superimposed infection on interstitial lung disease is not excluded; correlate clinically. -Rule out sarcoidosis -Continue nebulizer treatment 3. COPD -Continue nebulizer treatment 4. Renal insufficiency -ABG consistent with metabolic acidosis secondary to renal insufficiency -Management as per nephrology Objective - Vital Signs/Intake and Output Vital Signs (last 24 hours): Temp Pulse Resp BP Pulse Ox 97.9 F 83 13 138/58 L 97 11/22/17 15:30 11/22/17 16:30 11/22/17 16:30 11/22/17 16:30 11/22/17 16:30 Intake and Output: 11/22/17 11/22/17 06:59 18:59 Intake Total 400 920 Output Total 250 Balance 150 920 - Medications Medications: Current Medications Albuterol/Ipratropium (Duoneb 3 Mg/0.5 Mg (3 Ml) Ud) 3 ml IH RQ6 [facility] Last Admin: 11/22/17 14:16 Dose: Not Given Amlodipine Besylate (Norvasc) 5 mg PO DAILY [facility] Last Admin: 11/22/17 10:00 Dose: 5 mg Epoetin Mathieu (Procrit) 10,000 unit SC TTS [facility] Ferric Sodium Gluconate Complex (Ferrlecit) 125 mg IVPB DAILY [facility] Stop: 11/30/17 10:01 Last Admin: 11/22/17 12:50 Dose: 125 mg Folic Acid (Folic Acid) 1 mg PO DAILY [facility] Last Admin: 11/22/17 10:00 Dose: 1 mg Hydromorphone HCl (Dilaudid) 0.5 mg IVP Q5M PRN PRN Reason: Pain, severe (8-10) Stop: 11/22/17 17:32 Last Admin: 11/22/17 16:36 Dose: 0.5 mg Dextrose/Sodium Chloride (Dextrose 5%/0.45% Ns 1000 Ml) 1,000 mls @ 70 mls/hr IV .[id number] [facility] Last Admin: 11/22/17 14:23 Dose: 70 mls/hr Ondansetron HCl (Zofran Inj) 4 mg IVP ONCE PRN PRN Reason: Nausea/Vomiting Stop: 11/22/17 17:32 Pantoprazole Sodium (Protonix Ec Tab) 40 mg PO DAILY [facility] Last Admin: 11/22/17 12:36 Dose: 40 mg Tramadol HCl (Ultram) 50 mg PO TID [facility] - Labs Labs: 11/22/17 07:46 11/22/17 07:46 PT 11.9 SECONDS (9.7-12.2) 11/21/17 09:52 INR 1.0 11/21/17 09:52 APTT 32 SECONDS (21-34) 11/21/17 09:52 Assessment and Plan (1) ILD (interstitial lung disease) Status: Acute (2) COPD (chronic obstructive pulmonary disease) Status: Acute (3) Renal insufficiency Status: Acute (4) Inguinal hernia Status: Acute
--- NOTE | 2017-11-22 23:38 | CP.PCM.PN ---
Subjective - Date & Time of Evaluation Date of Evaluation: 11/22/17 Time of Evaluation: 16:55 - Subjective Subjective: Pt seen and examined today during routine follow up rounds Objective - Vital Signs/Intake and Output Vital Signs (last 24 hours): Temp Pulse Resp BP Pulse Ox 97.6 F 89 27 H 143/67 95 11/22/17 16:45 11/22/17 16:45 11/22/17 16:45 11/22/17 16:45 11/22/17 16:45 Intake and Output: 11/22/17 11/23/17 18:59 06:59 Intake Total 1120 Balance 1120 - Medications Medications: Current Medications Albuterol/Ipratropium (Duoneb 3 Mg/0.5 Mg (3 Ml) Ud) 3 ml IH RQ6 [facility] Last Admin: 11/22/17 14:16 Dose: Not Given Amlodipine Besylate (Norvasc) 5 mg PO DAILY [facility] Last Admin: 11/22/17 10:00 Dose: 5 mg Epoetin Mathieu (Procrit) 10,000 unit SC TTS [facility] Ferric Sodium Gluconate Complex (Ferrlecit) 125 mg IVPB DAILY [facility] Stop: 11/30/17 10:01 Last Admin: 11/22/17 12:50 Dose: 125 mg Folic Acid (Folic Acid) 1 mg PO DAILY [facility] Last Admin: 11/22/17 10:00 Dose: 1 mg Dextrose/Sodium Chloride (Dextrose 5%/0.45% Ns 1000 Ml) 1,000 mls @ 70 mls/hr IV .[id number] [facility] Last Admin: 11/22/17 20:32 Dose: 70 mls/hr Pantoprazole Sodium (Protonix Ec Tab) 40 mg PO DAILY [facility] Last Admin: 11/22/17 12:36 Dose: 40 mg Tramadol HCl (Ultram) 50 mg PO Q8H PRN PRN Reason: Pain, moderate (4-7) Last Admin: 11/22/17 20:05 Dose: 50 mg - Labs Labs: 11/22/17 07:46 11/22/17 07:46 PT 11.9 SECONDS (9.7-12.2) 11/21/17 09:52 INR 1.0 11/21/17 09:52 APTT 32 SECONDS (21-34) 11/21/17 09:52
[2017-11-23 00:42] VITALS: RESP 20
[2017-11-23] MEDS: Albuterol-Ipratrop 3 mg / 0.5 (3 ml) UD IH SCH ×3 (01:51→14:01)
--- NOTE | 2017-11-23 02:29 | OP ---
PROCEDURE DATE: 11/21/2017 PREOPERATIVE DIAGNOSIS: Incarcerated left inguinal hernia. POSTOPERATIVE DIAGNOSIS: Incarcerated left inguinal hernia. PROCEDURE: Repair of incarcerated left inguinal/sliding hernia. SURGEON: Long Ocampo MD MANAGER PRODUCT MARKETING: Dr. Stafford TYPE OF ANESTHESIA: General. ESTIMATED BLOOD LOSS: 30 mL. POSTOP CONDITION: Stable. INDICATIONS FOR SURGERY: This is an 82-year-old male who presents with a left inguinal hernia which is incarcerated and he is in poor health, was admitted day before for medical clearance which was obtained. GROSS FINDINGS: The patient had a hernia which is a sliding hernia containing colon. There was also a large cord lipoma which was removed during the procedure. DESCRIPTION OF PROCEDURE: A standard left inguinal incision was made. The external oblique aponeurosis was opened. Spermatic cord was looped with a Fiordaliza drain. The large hernia sac was identified within the spermatic cord, dissected free down to its base. The colon was encountered and a small serosal tear was repaired with silk. The bleeding from the spermatic cord was noted in the spermatic artery which was repaired with a 6-0 Prolene. A large cord lipoma was also removed. The hernia sac was then inverted and a large ProLoop hernia plug was inserted and sutured in place with a 2-0 Prolene suture. Wound was irrigated with copious amounts of saline solution and the external oblique aponeurosis was closed with a 2-0 Monocryl, and the subcutaneous tissue was closed with a 3-0 Monocryl. The skin was closed with the skin clips. The patient tolerated the procedure well, returned to the recovery room in stable condition. Long Ocampo MD
[2017-11-23] MEDS: Dextrose 5%/0.45% NS 1,000 ML IV SCH (03:35)
[2017-11-23 08:16] VITALS: PULSE 98; TEMP 98.5; O2SAT 96
--- NOTE | 2017-11-23 09:28 | PN ---
DATE: 11/22/2017 FOLLOWUP RENAL CONSULTATION LOCATION: The patient is located in room 365, bed B. REQUESTED BY: Long Ocampo MD REASON FOR FOLLOWUP: Chronic kidney disease, anemia, metabolic acidosis. HISTORY OF PRESENT ILLNESS: Mr. Moreno is an 82-year-old elderly male, very pleasant with past medical history significant for longstanding hypertension, diabetes, ex-smoker for more than 20 years, about 20-40 pack year history, and chronic kidney disease was admitted for an inguinal hernia repair today. The patient was found to have increased BUN and creatinine and low H and H and acidosis. The patient was started on half normal saline with 75 mg sodium bicarb IV drip last night. The patient is feeling better, not in any acute distress. No chest pain, no palpitation, no fever, no cough. No abdominal pain. No nausea, vomiting, or diarrhea. Denies any abdominal pain. PHYSICAL EXAMINATION: VITAL SIGNS: As follows: This morning blood pressure 126/62, pulse 83, respiration 20, temperature 97.7, saturation 96%, height 5 feet, weight is 100 pounds. GENERAL: Mr. Moreno is an 82-year-old elderly, very pleasant male, moderately built, moderately nourished, not in any acute distress. HEENT: Pupils are normal, reactive to light and accommodation. Conjunctivae pink, sclerae anicteric, tongue is moist and trachea is midline. LUNGS: Symmetric on both sides. Bilateral breath sounds are present, clear on auscultation. CARDIOVASCULAR: Solon at the fifth intercostal space, midclavicular line, S1 and S2 audible. No murmur or gallop. ABDOMEN: Normal in appearance, soft, tympanic. No guarding, no rigidity, no hepatosplenomegaly. CENTRAL NERVOUS SYSTEM: The patient is alert, awake, oriented x3, nonfocal neuro examination. Cranial nerves II through XII grossly intact. Sensory and motor system is within normal limits. EXTREMITIES: No cyanosis, no clubbing, no edema. The patient has a left inguinal hernia present. CURRENT MEDICATIONS: Include as follows: IV fluids half normal saline with 75 mg sodium bicarb at 70 mL per hour, DuoNeb inhaler, Ferrlecit 125 mg IV daily, folic acid 1 mg p.o. daily, Norvasc 5 mg p.o. daily, Procrit 10,000 subcutaneous three times a week, Protonix 40 mg p.o. daily, and tramadol 50 mg p.o. q. 8 hours. LABORATORY DATA: His laboratory data include as follows: As of 11/22/2017,WBC 5.9, hemoglobin 8.3, hematocrit is 24.6, platelets 277. Sodium is 141, potassium 4.5, chloride 111, CO2 of 22, BUN 43, creatinine 2.3, glucose is 86, calcium is 8.8. Other laboratory data as of 11/21/2017, phosphorous 3.8, iron 27, TIBC 221, iron saturation 12, and ferritin is 253. As of 11/21/2017, ESR is 142. Ultrasound of the kidneys as of 11/21/2017, echogenic kidneys suggesting medical renal disease, mild pelvocaliectasis disease of the left kidney, incidental non-acute findings. IMPRESSION: In summary, Mr. Moreno is an 82-year-old elderly male with a history of hypertension, diabetes, chronic kidney disease status post right inguinal hernia repair in the past, was admitted for an inguinal hernia repair on the left side with increased BUN and creatinine and low bicarb and low hemoglobin and hematocrit. 1. Chronic kidney disease stage IV most likely secondary to hypertensive nephrosclerosis. 2. Anemia secondary to renal failure and iron deficiency. PLAN: We will change IV fluids to D5 half normal saline at 70 mL per hour, discontinue sodium bicarb drip, and continue Epogen three times a week and IV Ferrlecit daily. We will check urine protein electrophoresis and serum protein electrophoresis to rule out multiple myeloma less likely and also we will check PTH intact level in a.m. Check hepatitis B and C serology also. Thank you for allowing me to participate in your patient's care. Caro Johnson MD
[2017-11-23] MEDS: Pantoprazole 40 mg EC Tab PO SCH (10:57)
[2017-11-23] MEDS: Ferric Sodium Gluconat Complex 62.5 mg/5 ml Vial IVPB SCH (11:06)
[2017-11-23 12:09] VITALS: BP 144/64
--- NOTE | 2017-11-23 12:26 | CARD ---
APPROVED REPORT EKG Measurement Heart [id number] <Conclusion> Normal sinus rhythm Moderate voltage criteria for LVH, may be normal variant Borderline ECG
--- NOTE | 2017-11-23 12:36 | CARD ---
APPROVED REPORT EKG Measurement Heart [id number] <Conclusion> Normal sinus rhythm Minimal voltage criteria for LVH, may be normal variant Nonspecific T wave abnormality Abnormal ECG
--- NOTE | 2017-11-23 16:29 | CP.PCM.PN ---
Subjective - Date & Time of Evaluation Date of Evaluation: 11/23/17 Time of Evaluation: 10:00 - Subjective Subjective: Patient is seen and examined at bedside today Resting comfortably, unlabored breathing Reports occasional cough with less intensity Denies fever/chills, chest pain, shortness of breath, wheezing Afebrile Status post left inguinal hernia repair yesterday 11/22 Assessment/Plan: 1. Left inguinal hernia -Management as per surgery -Status post repair on 11/22 2. Interstitial lung disease -Most recent chest XR on 11/21: Interstitial prominence appears chronic. Evidence of honeycombing. Mild patchy bibasilar infiltrates/atelectasis. -Most recent chest CT without contrast on 11/21: Prominent mediastinal adenopathy. Reticular opacities bilaterally and interstitial prominence. Honeycombing was evident within the lingula and right middle lobe. Patchy bilateral lower lobe infiltrates. Superimposed infection on interstitial lung disease is not excluded; correlate clinically. -Rule out sarcoidosis -Continue nebulizer treatment 3. COPD -Continue nebulizer treatment 4. Renal insufficiency -ABG consistent with metabolic acidosis secondary to renal insufficiency -Management as per nephrology Objective - Vital Signs/Intake and Output Vital Signs (last 24 hours): Temp Pulse Resp BP Pulse Ox 98.5 F 98 H 20 144/64 96 11/23/17 08:14 11/23/17 08:14 11/23/17 08:14 11/23/17 11:29 11/23/17 08:14 - Labs Labs: 11/22/17 07:46 11/22/17 07:46 PT 11.9 SECONDS (9.7-12.2) 11/21/17 09:52 INR 1.0 11/21/17 09:52 APTT 32 SECONDS (21-34) 11/21/17 09:52 Assessment and Plan (1) ILD (interstitial lung disease) Status: Acute (2) COPD (chronic obstructive pulmonary disease) Status: Acute (3) Renal insufficiency Status: Acute (4) Inguinal hernia Status: Acute
== END 2017-11-23 14:09 | disposition home or self-care (01) | DRG 351 ==
LOC: C.ER 09:03 → C.9E 09:45 → C.3T 10:37
PROVIDERS: ADMIT Surgery; ATTEND Surgery
PROC: 0YU60JZ Supplement Left Inguinal Region with Synthetic Substitute, Open Approach (ICD-10-PCS; principal; 2017-11-21)
PROC: 0JBC0ZZ Excision of Pelvic Region Subcutaneous Tissue and Fascia, Open Approach (ICD-10-PCS; 2017-11-21)
DX: K40.30 Unilateral inguinal hernia, with obstruction, without gangrene, not specified as recurrent (principal); S36.539A Laceration of unspecified part of colon, initial encounter; E87.2 Acidosis; J84.9 Interstitial pulmonary disease, unspecified; E11.22 Type 2 diabetes mellitus with diabetic chronic kidney disease; I42.0 Dilated cardiomyopathy; N18.4 Chronic kidney disease, stage 4 (severe); J44.9 Chronic obstructive pulmonary disease, unspecified; D63.1 Anemia in chronic kidney disease; Y65.8 Other specified misadventures during surgical and medical care; I12.9 Hypertensive chronic kidney disease with stage 1 through stage 4 chronic kidney disease, or unspecified chronic kidney disease; D17.6 Benign lipomatous neoplasm of spermatic cord; Z87.891 Personal history of nicotine dependence; E78.5 Hyperlipidemia, unspecified